=== PATIENT | male | born 1985 | race Caucasian/White ===

== ENCOUNTER 2018-07-28 19:52 | Emergency (ER) | payer MEDICAID ==
[~2018-07-28] VITALS: Ht 185.4 cm; Wt 68.0 kg
[2018-07-28 20:00] VITALS: BP 129/88
[2018-07-28] MEDS ORDERED: LIDOCAINE 1% 500 MG/50 ML VIAL INJ SCH (21:20)
== END 2018-07-28 23:19 | disposition home or self-care (01) ==
LOC: MED 19:52
DX: S00.432A Contusion of left ear, initial encounter (principal); F12.10 Cannabis abuse, uncomplicated; W22.8XXA Striking against or struck by other objects, initial encounter; Y93.89 Activity, other specified; Y92.89 Other specified places as the place of occurrence of the external cause; Y99.8 Other external cause status
CPT/HCPCS: 69000; 99283; J2001